=== PATIENT | female | born 1950 | race Caucasian/White ===

== ENCOUNTER → 2024-06-24 12:29 | Outpatient (REF) | payer MEDICARE, SELFPAY | LOC: MRI 3T 12:29 | PROVIDERS: ATTENDING PHYSICIAN Orthopaedic Surgery; FAMILY PHYSICIAN Nurse Practitioner Adult Health | DX: M25.561 Pain in right knee (principal) | CPT/HCPCS: 73721 ==

== ENCOUNTER → 2024-09-12 15:17 | Outpatient (REF) | payer MEDICARE, SELFPAY | LOC: RAD 15:17 | PROVIDERS: ATTENDING PHYSICIAN Nurse Practitioner Adult Health | DX: R07.81 Pleurodynia (principal) | CPT/HCPCS: 71101 ==